=== PATIENT | female | born 1955 | race Caucasian/White ===

== ENCOUNTER → 2022-05-18 15:46 | Outpatient (BNVA) | payer OTHER, SELFPAY | PROVIDERS: Visit Provider Orthopaedic Surgery | DX: M16.12 Unilateral primary osteoarthritis, left hip (principal); M25.552 Pain in left hip | CPT/HCPCS: 73502 ==

== ENCOUNTER 2022-07-04 12:03 | Observation (INO) | payer OTHER, SELFPAY ==
--- NOTE | 2022-06-28 10:46 | P.ANESASSM_ITS ---
Pre-Anesthetic Assessment Height/Weight: Height 1.7 m Operation Date: 07/04/22 07:00 Proposed Procedures p left total hip arthroplasty/ 93605,M16.12(Left) - Abhilash Gallardo MD Familial anesthetic complications: None Social Tobacco and No alcohol Exam alert, oriented x 3, clear to auscultation bilaterally and regular rate & rhythm Airway Mallampati: Class II Dentition: false Pulmonary None reported CV/HEM Hypertension None reported Hepatic None reported GI None reported Metabolic None reported Musc/skel Osteoarthritis/DJD Neuropsych None reported Anesthetic Plan ASA status: 3 Anesthesia: Regional (specify below) Other: spinal Risk of > 500 ml blood loss (7ml/kg in children): Yes, adequate IV access and fluids planned Medications/Allergies Home Medications Medication Instructions Recorded Confirmed Last Taken Type aspirin 81 mg chewable tablet 81 mg PO DAILY 05/18/22 06/28/22 06/27/22 History bupropion HCl 100 mg tablet 100 mg PO BID 05/18/22 06/28/22 06/27/22 History celecoxib 200 mg capsule (Celebrex) 200 mg PO BID 05/18/22 06/28/22 06/26/22 History dexamethasone 4 mg tablet 4 mg PO BID 05/18/22 06/28/22 06/14/22 History hydrochlorothiazide 12.5 mg capsule 12.5 mg PO DAILY 05/18/22 06/28/22 06/26/22 History hydroxychloroquine 200 mg tablet 200 mg PO BID 05/18/22 06/28/22 06/26/22 History melatonin 10 mg tablet 20 mg PO DAILY 05/18/22 06/28/22 06/27/22 History nebivolol 5 mg tablet 5 mg PO DAILY 05/18/22 06/28/22 06/27/22 History tolterodine 2 mg capsule,extended 2 mg PO DAILY 05/18/22 06/28/22 06/27/22 History release 24 hr tumeric 100 mg-flores 150 mg-olive 100 cap PO 2XD 05/18/22 06/28/22 06/26/22 History 50 mg-oreg 150 mg-caprylate capsule Allergies Allergy/AdvReac Type Severity Reaction Status Date / Time No Known Allergies Allergy Verified 06/28/22 10:24 [facility] Anesthesia Social History (Updated 05/18/22 @ 15:38 by Jim Cortes LPN) Smoking and tobacco status: never smoked Alcohol intake: never Data Anesthesia Cardiac Studies: No Data to Display
[2022-06-28 11:01] VITALS: BMI 34.4
[2022-06-28 11:26] LABS: Anion Gap 12.9 (5-19); Blood Urea Nitrogen 18 mg/dL (8-23); Calcium 9.4 mg/dL (8.5-10.5); Carbon Dioxide 26 mmol/L (22-29); Chloride 106 mmol/L (98-107); Glomerular Filtration Rate 84.2 mL/min (90-130); Glucose 87 mg/dL (65-115); Osmolality Calculated 293 mOsm/kg (285-295); Potassium 3.9 mmol/L (3.5-5.1); Sodium 141 mmol/L (136-145)
[2022-07-04] VITALS (35 sets, daily range): BP systolic 62–147; BP diastolic 38–77; PULSE 62–81; RESP 15–18; TEMP 36.2–36.6; O2SAT 90–100
[2022-07-04] MEDS: sodium chloride 0.9% 1,000 ML 30 ML IV (08:46)
[2022-07-04] MEDS: oxyCODONE 20 mg ER (12 HR) Tablet PO (08:49)
[2022-07-04] MEDS: gabapentin 300 mg Capsule PO ×2 (08:51→20:39)
[2022-07-04] MEDS: CELEcoxib 200 mg Capsule 400 MG PO (08:59)
[2022-07-04] MEDS: acetaminophen 500 mg Tablet 1000 MG PO ×2 (09:00→17:05)
--- NOTE | 2022-07-04 09:24 | P.ANESUD_ITS ---
Pre-Anesthetic Update Pre-Anesthetic Assessment: Date of Surgery/Procedure: 07/04/22 Preop Michela gnosis: Osteoarthritis left hip Proposed Procedure: Operation Date: 07/04/22 10:05 Proposed Procedures p left total hip arthroplasty/ 86445,M16.12(Left) - Abhilash Gallardo MD Any changes to Pre-Anesthetic Assessment?: No Last Intake: Intake Last Liquid Date 07/03/22 Last Liquid Time 22:00 Last Solid Date 07/03/22 Last Solid Time 22:00 Vitals: Temperature 97.2 F L 07/04/22 08:31 Temperature Source Temporal Artery S can 07/04/22 08:31 Pulse Rate 79 07/04/22 08:31 Respiratory Rate 18 07/04/22 08:49 Respiratory Effort 07/04/22 08:49 Respiratory Depth Normal 07/04/22 08:49 Respiratory Patter n 07/04/22 08:49 Blood Pressure 147/77 07/04/22 08:31 Blood Pressure Eli n 100 07/04/22 08:31 Pulse Oximetry 96 07/04/22 08:49 Oxygen Delivery Me thod 07/04/22 08:35 Exam: Pre-Anes Outpt Exam: alert, oriented x 3, clear to auscultation bilaterally and regular rate & rhythm Cardiac Studies: No Data to Display
--- NOTE | 2022-07-04 09:31 | P.HP_ITS ---
Same Day Surgery H&P Indication for Procedure/HPI DATE OF PROCEDURE: July 04, 2022 CHIEF COMPLAINT/INDICATIONFOR SURGICAL PROCEDURE: Osteoarthritis left hip here for left total hip arthroplasty PREOP DIAGNOSIS: Osteoarthritis left hip PLANNED PROCEDURE: Operation Date: 07/04/22 10:05 Proposed Procedures p left total hip arthroplasty/ 35401,M16.12(Left) - Abhilash Gallardo MD 66-year-old with osteoarthritis left hip here for total hip arthroplasty. States she has had gradually worsening pain for up to one year. She states that her pain is in the lateral thigh, and in her groin at times. She states that her pain keeps her awake at night and wakes her from sleep. She states that her pain is reproduced with laying on any side. She has pain with prolonged sitting, standing, and walking. She has pain with bending, twisting, and pivoting. She states that she is unable to ambulate stair and walking up an incline.? She s tates she can walk short distances through her house but has a difficult time anytime she attempts to ambulate out in the community.? She has been on Celebrex which does give her minimal relief. Medications/Allergies* Home Medications Medication Instructions Recorded Confirmed Type aspirin 81 mg chewable tablet 81 mg PO DAILY 05/18/22 06/28/22 History bupropion HCl 100 mg tablet 100 mg PO BID 05/18/22 06/28/22 History celecoxib 200 mg capsule (Celebrex) 200 mg PO BID 05/18/22 06/28/22 History dexamethasone 4 mg tablet 4 mg PO BID 05/18/22 06/28/22 History hydrochlorothiazide 12.5 mg capsule 12.5 mg PO DAILY 05/18/22 06/28/22 History hydroxychloroquine 200 mg tablet 200 mg PO BID 05/18/22 06/28/22 History melatonin 10 mg tablet 20 mg PO DAILY 05/18/22 06/28/22 History nebivolol 5 mg tablet 5 mg PO DAILY 05/18/22 06/28/22 History tolterodine 2 mg capsule,extended 2 mg PO DAILY 05/18/22 06/28/22 History release 24 hr tumeric 100 mg-flores 150 mg-olive 100 cap PO 2XD 05/18/22 06/28/22 History 50 mg-oreg 150 mg-caprylate capsule Allergies/Adverse Reactions Allergy/AdvReac Type Severity Reaction Status Date / Time No Known Allergies Allergy Verified 06/28/22 10:24 Current Medications: Generic Name Dose Route Start Last Admin Trade Name Evita PRN Reason Stop Dose Admin Sodium Chloride 1,000 mls @ 30 mls/hr 07/04/22 08:30 07/04/22 08:46 Sodium Chloride 0.9% IV 07/05/22 08:29 30 mls/hr .Q24H ENOC Administration Pertinent History/Comorbid Conditions* Social History Smoking and tobacco status: never smoked Alcohol intake: never Pertinent Exam Findings alert, oriented x 3, clear to auscultation bilaterally, regular rate & rhythm, operative site marked and procedure specific exam findings HIP, left No tenderness RANGE OF MOTION:? EXAMINED HIP ? Flexion:90 ? Extrenal Rotation:40 ? Internal Rotation:20 Recommendations Surgery/Procedure today Coding Level of Care Code Acute Code for Chg Fwd
[2022-07-04] MEDS: ceFAZolin 2,000 MG in sodium chloride 0.9% (plus) 50 ML 100 MG IV ×2 (09:52→17:06)
[2022-07-04] MEDS: tranexamic acid 1,000 mg/10mL SDV 1000 MG IV (10:10)
[2022-07-04] MEDS: sodium chloride 0.9% 100 mL Bag XX (10:32)
--- NOTE | 2022-07-04 11:30 | P.OP_ITS ---
Operative Report Date of procedure: July 04, 2022 Pre-op diagnosis: Preop Diagnosis Osteoarthritis left hip Post-op diagnosis: same Post-op diagnosis: Same Procedure done: Left total hip arthroplasty Implants: 1) Mallory 52 mm Trident 2 solid back acetabular shell 2) Size 3 Chester 127 degree neck angle Accolade 2 stem 3} 28mm -4 standard ceramic femoral head 4} the MDM metal liner Pathology: none sent Surgeon: Abhilash Gallardo Development Scientist: [employer] Development Scientist: The physician biology research assistant assisted with positioning of the patient. He assisted with the surgical exposure including critical portions of the case were implants were implanted. He assisted with closure and dressing and abduction pillow placement Anesthesia: Nerve Block (Spinal) Estimated blood loss (mL): 200 Findings: Patient had eburnation flattening and wear over the femoral head with cystic changes in the acetabular Condition: stable Disposition: PACU Procedure: The patient was taken to the operating room and anesthesia provided by the anesthesia service. The patient was placed in the lateral position on a pegboard. A timeout was performed. The patient was draped in the usual fashion. A 15 cm long incision was made beginning just proximal to the greater trochanter and extending posteriorly to a point just distal to the trochanter on the posterior border of the trochanter. Dissection was carried down with electrocautery through the subcutaneous fat to the fascia eileen which was divided proximally and distally with curved scissors. The anterior two thirds of the gluteus medius and minimus were elevated off the hip with electrocautery. The capsule was divided in a H-like fashion. The hip was dislocated and a neck cut made just above the level of the lesser trochanter. Exposure of the acetabulum was facilitated with the acetabular retractors. Remnants of labrum and peripheral osteophytes were removed with electrocautery and a rongeur. A reamer 2 mm under the size the femoral head was utilized to ream medially to the base of the palm and are. Reaming was then increased in 1 mm intervals until a healthy rim a trabecular bone was encountered. The rim was touched with the reamer the size of the final acetabular shell to be placed. A final Trident 2 acetabular cup of the same size as the final reaming was press- fit into place. The ADM liner was secured. Attention was then focused on the femur. The canal was localized with a canal finder. Broaching was then accomplished until a stable broach size was obtained. A trial reduction with the head and neck provided excellent stability. The wound was irrigated with saline and antibiotic solution. The final Mallory Accolade II stem was press-fit into place. The femoral head was placed and the hip was reduced. The hip was brought through range of motion and found to be free of impingement and stable. The anterior capsule was reapproximated with 1 Ethibond. The gluteus medius and minimus were repaired through bone with 5 Ethibond and reinforced with 1 Ethibond. The fascial eileen was closed with a running 0 Stratafix suture. Deep pelvic tissues were closed with 2-0 Stratafix and the skin with a running 4-0 l Stratafix. The skin was covered with a Prineo dressing and op site dressings.
--- NOTE | 2022-07-04 11:36 | XR_ITS ---
WS: [id number] Left hip, 2 views, 07/04/2022 Clinical Data: Total hip arthroplasty Comparison: Pelvis and left hip, 05/18/2022 Findings: The left hip arthroplasty is in good position. No loosening or periprosthetic fractures are seen. XR/XR hip LT 2-3V wo/w pel* 19100 Impression: Left hip arthroplasty
[2022-07-04] MEDS: albumin 12.5 GM/250 ML VIAL IV (12:14)
[2022-07-04] MEDS: ePHEDrine 50 mg/mL Inj 25 MG IM (12:32)
[2022-07-04] MEDS: sodium chloride 0.9% 1,000 ML 100 ML IV ×2 (14:12→22:29)
--- NOTE | 2022-07-04 15:20 | ANE.PACU2 ---
Inpatient post-anesthesia follow up: Airway intact: Yes Vital signs: Temperature 97.4 F Pulse Rate 76 Respiratory Rate 16 Blood Pressure 93/65 Pulse Oximetry 93 Oxygen Delivery Me thod Room Air Oxygen Flow Rate 2 Fraction of Inspir ed Oxygen Hydration adequate: Yes Nausea and vomiting: No Pain level: 1 Mental status: Baseline
[2022-07-04] MEDS: oxyCODONE 5 mg IR Tab/Cap PO ×2 (17:57→22:29)
[2022-07-04] MEDS: morphine 4 mg/mL SDV 1 mL 2 MG IVP (20:37)
[2022-07-04] MEDS: dexamethasone 4 mg Tablet PO (20:38)
[2022-07-04] MEDS: hydroxychloroquine 200 mg Tablet PO (20:38)
[2022-07-04] MEDS: buPROPion SR (12 HR) 100 mg Tablet PO (20:39)
[2022-07-04] MEDS: CELEcoxib 200 mg Capsule PO (20:39)
[2022-07-05] VITALS (7 sets, daily range): BP systolic 107–121; BP diastolic 66–79; PULSE 71–94; RESP 16; TEMP 36.3–36.5; O2SAT 90–96
[2022-07-05] MEDS: acetaminophen 500 mg Tablet 1000 MG PO ×2 (02:20→09:05)
[2022-07-05] MEDS: ceFAZolin 2,000 MG in sodium chloride 0.9% (plus) 50 ML 100 MG IV ×2 (02:20→09:11)
[2022-07-05] MEDS: oxyCODONE 5 mg IR Tab/Cap PO ×2 (02:20→06:12)
[2022-07-05 04:52] LABS: Hemoglobin 12.1 g/dL (11.5-15.3)
[2022-07-05] MEDS: hydroCHLOROthiazide 25 mg Tablet 12.5 MG PO (09:06)
[2022-07-05] MEDS: CELEcoxib 200 mg Capsule PO (09:07)
[2022-07-05] MEDS: buPROPion SR (12 HR) 100 mg Tablet PO (09:07)
[2022-07-05] MEDS: gabapentin 300 mg Capsule PO (09:07)
[2022-07-05] MEDS: dexamethasone 4 mg Tablet PO (09:07)
[2022-07-05] MEDS: aspirin 81 mg Chew Tablet PO (09:07)
[2022-07-05] MEDS: enoxaparin 40 mg/0.4 mL Syringe SUBCUT (09:08)
[2022-07-05] MEDS: hydroxychloroquine 200 mg Tablet PO (09:09)
--- NOTE | 2022-07-05 09:19 | PM.DCS ---
Discharge Providers Date of Admission: 07/04/22 12:03 Date of Discharge: July 05, 2022 Attending Provider at Admission: Abhilash Lynn MD Attending Provider at Discharge: Abhilash Lynn MD Primary Care Provider: REBECCA Vasquez Reason for Visit Reason for Visit: Unilateral primary osteoarthritis, left hip Hospital Course Hospital Course The patient tolerated surgery well. They remained hemodynamically stable. They was begun on aspirin and sequential compression dressing for DVT prophylaxis. The patient was mobilized with therapy beginning the day of surgery and by the first postoperative day independent with the walker. As the pain was adequately controlled and they were fully mobile they were discharged home. Physical Exam Narrative: On the day of discharge the hip incision was clean. The incision was free of drainage. They had no particular swelling about the thigh or distal. No distal neurovascular deficits were noted. Discharge Data Studies Completed and Pending Completed Studies During Hospitalization Category Date Time Status XR hip LT 2-3V wo/w pel* [id number] Routine Exams 07/04/22 11:36 Completed Radiology Impressions Hip/Pelvis X-Ray 07/04/22 11:36 Impression: Left hip arthroplasty Laboratory Results Hgb 12.1 g/dL (11.5-15.3) 07/05/22 04:43 Sodium 141 mmol/L (136-145) 06/28/22 10:58 Potassium 3.9 mmol/L (3.5-5.1) 06/28/22 10:58 Chloride 106 mmol/L (98-107) 06/28/22 10:58 Carbon Dioxide 26 mmol/L (22-29) 06/28/22 10:58 Anion Gap 12.9 (5-19) 06/28/22 10:58 BUN 18 mg/dL (8-23) 06/28/22 10:58 Creatinine 0.7 mg/dL (0.5-0.9) 06/28/22 10:58 GFR Calculation 84.2 mL/min (90-130) L 06/28/22 10:58 Glucose 87 mg/dL (65-115) 06/28/22 10:58 Calculated Osmolality 293 mOsm/kg (285-295) 06/28/22 10:58 Calcium 9.4 mg/dL (8.5-10.5) 06/28/22 10:58 Vitals Last Vital Signs Temp 97.7 F 07/05/22 07:42 Pulse 80 07/05/22 07:42 Resp 16 07/05/22 07:42 BP 119/79 07/05/22 07:42 Pulse Ox 90 07/05/22 07:42 O2 Del Method 07/05/22 07:42 O2 Flow Rate 2 07/04/22 13:02 Discharge Plan Discharge Patient Disposition: Home Condition: Stable Prescriptions: New acetaminophen 500 mg Tablet 1,000 mg PO Q8H 14 Days Qty: 84 0RF gabapentin 300 mg Capsule 300 mg PO BID 7 Days Qty: 14 0RF oxycodone 5 mg Tablet 5 mg PO Q4H PRN (Reason: Moderate Pain) 7 Days Qty: 30 0RF enoxaparin 40 mg/0.4 mL Syringe 40 mg SUBCUT Q24H 10 Days Qty: 4 0RF Continued hydroxychloroquine 200 mg tablet 200 mg PO BID tolterodine 2 mg capsule,extended release 24hr 2 mg PO DAILY bupropion HCl 100 mg tablet 100 mg PO BID hydrochlorothiazide 12.5 mg capsule 12.5 mg PO DAILY celecoxib [Celebrex] 200 mg capsule 200 mg PO BID nebivolol 5 mg tablet 5 mg PO DAILY aspirin 81 mg tablet,chewable 81 mg PO DAILY gdewfca-lnge-dzyom-oreg-capryl 100 mg-150 mg- 50 mg-150 mg capsule 100 cap PO 2XD melatonin 10 mg tablet 20 mg PO DAILY dexamethasone 4 mg tablet 4 mg PO BID Discharge Orders: Discharge Order (Routine); Ordered 07/05/22 Ordered By: Abhilash Lynn Other Ambulatory Orders: DME: Charles (Order) Location: None Selected Ordered By: Abhilash Lynn Referrals: Abhilash Lynn MD [Physician] - 07/19/22 1:00 pm Discharge Diet: Advance as tolerated Discharge Activity: Limit activity as instructed Patient Instructions: Oxycodone/Acetaminophen (By mouth), Gabapentin (By mouth), Enoxaparin (By injection), Total Hip Replacement (GEN), Opioid Safety Activity Restrictions/Additional Instructions: Okay to shower. No soaking incision in tub Apply FirstIce up to 20 min/hr for pain and swelling Take Neurontin twice a day for 7 days. Take Tylenol 500mg (up to 2 tabs) 3 times a day for mild pain Take oxycodone for breakthrough pain. Exercises per physical therapy. May weight-bear as tolerated on total hip arthroplasty IF HAVE ANY PROBLEMS OR QUESTIONS CALL HOSPITAL TYPESETTING SUPERVISOR AT AND ASK TO HAVE DR. LYNN PAGEBrittani. Discharge Attestations Time Spent in Discharge Care*: other Quality Metrics Clinical Quality Measures [ No reported AMI, CVA or VTE this stay] Coding Level of Care Code Acute Code for Ferg Severo
[2022-07-05] MEDS: sennosides-docusate Tablet 2 TAB PO (09:25)
--- NOTE | 2022-07-05 10:41 | PC.CHAP ---
Pastoral Care Encounter/Spiritual Assessment Type of Contact [] Declined amphibian crewmember visit [] Patient/Family/Request visit [] Outpatient visit [] Follow-up visit [] Physician referral [] Code/Alert [x] Routine visit [] Staff referral [] Actively dying [] Patient sleeping [] Family support [] [] Out of room [] Palliative care [] [] Receiving care in room [] Pre-surgical visit [] Trauma [] Long length of stay [] ICU visit [] Other: Relational/Emotional Strength [x] Patient feels connected with others/family/visitors/staff [] Distress [] Loneliness/isolation [] Abandonment Spirituality of Patient [x] Person of Lakshmi [] Attends Orthodoxy of their Lakshmi [x] Believes in Prayer [] Reads Bible or Alevism materials [] There are Spiritual issues to be addressed Convenience Store Manager Interventions [x] Prayer [x] Active listening [] Non-anxious presence [x] Spiritual/emotional support [] Crisis/trauma care [] Spiritual counseling [] Bereavement support [] Provided bereavement packet [] Provided Bible/devotional materials [] Provided toy/stuffed animal, coloring book to patient or family member [] Provided Communion [] Anointing/Meherrin [] Salvation [x] Completed spiritual assessment [] Other: Impact on Illness or Injury [] Angry [] Fearful [] Anxious [] Often cries [] Exhaustion [] Unable to work [] Unable to attend restorationist [] Unable to walk/stand [] Unable to read [] Unable to drive [] Unable to eat/drink [] Unable to sleep [] Unable to be with family [] Patient intubated [] Other: Summary Time spent with patient 5 min
--- NOTE | 2022-07-05 11:18 | PC.NURSE ---
Discussed discharge, new medications, continued medications, follow up appointments and answered all questions for patient. Patient verbalized understanding and knows how to get a hold of Dr. Gallardo if any issues at home. 1055/DLW
== END 2022-07-05 11:28 | disposition home or self-care (01) ==
LOC: MEDSURG 12:04
PROVIDERS: Anesthesiology; Admitting Provider Orthopaedic Surgery; PCP Nurse Practitioner; Visit Provider Orthopaedic Surgery
PROC: (CPT 27130; principal; 2022-07-04 09:45)
DX: M16.12 Unilateral primary osteoarthritis, left hip (principal); I10 Essential (primary) hypertension; Z79.82 Long term (current) use of aspirin
CPT/HCPCS: 27130; 36415; 73502; 80048; 85018; 96372; 97110; 97116; 97161; 97165; 97535; C1713; C1776; G0378; J0690; J1580; J1650; J2250; J2270; J2370; J2704; J7030; J8540; P9045

== ENCOUNTER → 2022-08-25 11:13 | Outpatient (BNVA) | payer OTHER, SELFPAY | PROVIDERS: PCP Nurse Practitioner; Visit Provider Nurse Practitioner Family | DX: Z96.642 Presence of left artificial hip joint (principal) | CPT/HCPCS: 73502 ==

== ENCOUNTER → 2022-11-24 10:48 | Outpatient (BNVA) | payer OTHER, SELFPAY | PROVIDERS: PCP Nurse Practitioner; Visit Provider Nurse Practitioner Family | DX: Z96.642 Presence of left artificial hip joint (principal) | CPT/HCPCS: 73502 ==

== ENCOUNTER → 2023-08-04 10:00 | Outpatient (BNVA) | payer MEDICARE, SELFPAY | PROVIDERS: PCP Nurse Practitioner; Visit Provider Physician Assistant | DX: Z96.642 Presence of left artificial hip joint (principal) | CPT/HCPCS: 73502; 99213 ==

== ENCOUNTER 2024-11-25 11:53 | Outpatient (CLI) | payer MEDICARE, SELFPAY ==
--- NOTE | 2024-11-25 12:00 | USCV_ITS ---
Magdaleno Mily Age: 68 Gender: F : 1955 Exam Date: 11/25/2024 12:26 Ordering Phys: Ericka ScottP ELECTRICAL PROJECT ENGINEER Technologist: JOSHUA Exam Location: [facility] [place] Indication: CHF BP: 119 / 78 HR: 67 Rhythm: Sinus Technical Quality: Adequate MEASUREMENTS (Male / Female) Normal Values 2D ECHO LV Diastolic Diameter PLAX 4.0 cm 4.2 - 5.9 / 3.9 - 5.3 cm IVS Diastolic Thickness 1.1 cm 0.6 - 1.0 / 0.6 - 0.9 cm IVS Systolic Thickness 2.0 cm LVPW Diastolic Thickness 1.5 cm 0.6 - 1.0 / 0.6 - 0.9 cm LVPW Systolic Thickness 2.0 cm LVOT Diameter 2.1 cm LV Ejection Fraction 2D Teich 56.6 % LV Ejection Fraction MOD 4C 65.0 % LV Ejection Fraction MOD 2C 75.7 % LV Ejection Fraction 2C AL 75.1 % LA Diameter 3.2 cm RA Systolic Volume 4C AL 23.4 ml RA Systolic Volume 4C MOD 22.2 ml LA Sys Volume AL 49.6 cm cubed LA Sys Volume Index AL 23.7 cm cubed/m squared Aorta at Sinotubular Diameter 2.4 cm IVC Diameter 1.6 cm M-MODE LA Ao Ratio MM 1.5 AV Cusp Separation MM 1.2 cm DOPPLER AV Peak Velocity 214.7 cm/s LVOT Peak Velocity 106.0 cm/s AV Area Cont Eq vti 1.6 cm squared AV Area Cont Eq pk 1.7 cm squared MV Peak Velocity 99.0 cm/s MV Area PHT 3.9 cm squared Mitral E to A Ratio 0.9 TR Peak Velocity 173.0 cm/s TR Peak Gradient 12.0 mmHg TV Peak E Velocity 75.0 cm/s PV Peak Velocity 136.0 cm/s FINDINGS Left Ventricle Left ventricle is normal in size. LV systolic function is normal with EF of 60-65%. No regional wall motion abnormalities are seen. Grade 1 diastolic dysfunction Right Ventricle Normal in size and function Right Atrium Normal in size Left Atrium Normal in size Mitral Valve Structurally normal mitral valve. Trace mitral regurgitation Aortic Valve Aortic valve is thickened. Mild aortic stenosis with aortic valve area of 1.67 cm squared and mean gradient of 9 mmHg. Tricuspid Valve Insufficient TR jet to calculate RVSP. Pulmonic Valve Not well visualized Pericardium Normal Aorta Normal in size IVC Appears to be normal CONCLUSIONS LV systolic function is normal with EF of 60-65% Grade 1 diastolic dysfunction Trace mitral regurgitation Mild aortic stenosis Yves Hernandez MD (Electronically Signed) Final Date: 26 November 2024 11:25 S
== END 2024-11-25 11:54 | disposition home or self-care (01) ==
LOC: RAD 11:55
PROVIDERS: PCP Nurse Practitioner; Visit Provider Nurse Practitioner
DX: I50.9 Heart failure, unspecified (principal); M19.90 Unspecified osteoarthritis, unspecified site; J44.9 Chronic obstructive pulmonary disease, unspecified; R93.1 Abnormal findings on diagnostic imaging of heart and coronary circulation; I35.8 Other nonrheumatic aortic valve disorders; I35.0 Nonrheumatic aortic (valve) stenosis
CPT/HCPCS: 93306

== ENCOUNTER → 2025-01-14 10:59 | Outpatient (BNVA) | payer MEDICARE, SELFPAY | PROVIDERS: PCP Nurse Practitioner; Visit Provider Physician Assistant | DX: Z96.642 Presence of left artificial hip joint (principal); M25.472 Effusion, left ankle; M16.11 Unilateral primary osteoarthritis, right hip | CPT/HCPCS: 73502; 73610; 99214 ==

== ENCOUNTER → 2025-02-03 13:23 | Outpatient (BNVA) | payer MEDICARE, SELFPAY | PROVIDERS: PCP Nurse Practitioner; Referring Provider Nurse Practitioner; Visit Provider Internal Medicine | DX: R07.9 Chest pain, unspecified (principal); I35.0 Nonrheumatic aortic (valve) stenosis; I10 Essential (primary) hypertension; R06.09 Other forms of dyspnea; F17.200 Nicotine dependence, unspecified, uncomplicated | CPT/HCPCS: 93005; 99204 ==

== ENCOUNTER → 2025-03-25 12:18 | Outpatient (BNVA) | payer MEDICARE, SELFPAY | PROVIDERS: PCP Nurse Practitioner; Visit Provider Student in an Organized Health Care Education/Training Program | DX: Z01.818 Encounter for other preprocedural examination (principal) | CPT/HCPCS: 36415; 80053; 81001; 85025 ==

== ENCOUNTER 2025-04-08 08:04 | Outpatient (CLI) | payer MEDICARE, SELFPAY ==
--- NOTE | 2025-04-08 | ECG_ITS ---
[employer] Test Date: 2025-04-08 Pat Name: Mily Dolan Department: Room: Gender: Female Cook Manager: : 1955 Requested By: Yves Hernandez Order Number: [id number] Mayo MD: Conrad Mojica M.D. Interpretive Statements Lung unchanged pre/post procedure; Intraprocedure shortess of breath; Symptoms resoled by discharge PROCEDURE: At the baseline, the EKG revealed normal sinus rhythm with a normal ST Ts. Possible old septal NC. The baseline heart was 60 bpm with a blood pressue of 111/77 mm of Hg Lexiscan was infused over a period of 20 seconds. A total of 0.4 milligrams of Lexiscan was infused. The stress phase was continued for a total of 5 minutes. Heart rate at the end of the stress phase was 80 bpm with a blood pressure 108/67 mm of Hg. The EKG at the peak infusion revealed no significant changes. Sestamibi was injected 20 seconds after the Lexiscan infusion. Heart rate at the end of the recovery phase was 80 bpm with a blood pressure of 108/67 mm of Hg. CONCLUSION: 1. No significant EKG changes with the LexiScan infusion 2. No LexiScan induced chest pain or cardiac arrhythmia 3. Normal blood pressure and heart rate response 4. Sestamibi/sestamibi perfusion scan pending; see separate report. Electronically Signed On 04-13-2025 21:09:13 PIE ICER MACHINE by Conrad Mojica M.D. [email or web address]
--- NOTE | 2025-04-08 08:13 | NMCV_ITS ---
NM aixa perf SPECT r/s* [id number] Mily Dolan Age: 69 Gender: F : 1955 Exam Date: 04/08/2025 09:05 Ordering Phys: Yves Hernandez M.D ([email or web address]) Technologist: LILLIAN Granados Exam Location: [facility] [place] Indications: cp STRESS TEST Please see separate stress test report in [facility] for full findings IMAGE PROTOCOL Rest/Stress 1 Lexiscan Day Radiopharmaceutical Dose (mCi) Administration Site Administered by Rest: Tc-99m 10.4 IV LILLIAN Granados Sestamibi Stress:Tc-99m 32.1 IV LILLIAN Reeves Sestamibi Rest: 08-Apr-2025 60 Discovery 630 Stress: 08-Apr-2025 30 Discovery 630 0.4mg Lexiscan. Supine position only as patient was unable to lay prone. SPECT RESULTS Technical Quality: Good Raw Data Analysis: Normal Image Corrections: No attenuation or motion correction applied Summed Stress Score: 0 Summed Rest Score: 1 Summed Difference Score: 0 PERFUSION FINDINGS A small area of slightly decreased tracer uptake was noted in the apical inferior wall region. No significant reversibility was noted in this area FUNCTIONAL RESULTS (calculated via Gated SPECT) Stress Image LV EF (%): 74 Stress EDV (mL):99 TID: 1.2 Stress ESV (mL):26 FUNCTIONAL FINDINGS: Segmental wall motion analysis revealing no gross wall motion abnormalities IMPRESSIONS 1. Myocardial perfusion imaging revealing a small area of persistent decreased tracer uptake in the apical inferior region suggestive of myocardial scarring versus attenuation artifact 2. Normal LV ejection fraction of 74%. 3. LV wall motion analysis revealing no gross wall motion abnormalities. 4. Normal LV volume 5. Elevated transient ischemic dilatation ratio 1.2, may suggest endocardial ischemia. However the positive predictive value of this finding is limited. Clinical correlation is recommended Dr Conrad Mojica MD FACC (Electronically Signed) Final Date: 08 April 2025 13:00 S
[2025-04-08 08:25] VITALS: BMI 29.7
[2025-04-08 09:52] VITALS: BP 108/67; PULSE 86
--- NOTE | 2025-04-08 13:00 | USCV_ITS ---
Mily Dolan Age: 69 Gender: F : 1955 Exam Date: 04/08/2025 08:46 Ordering Phys: Landon Ramos DO Technologist: JOSHUA [place]am Location[place] [facility] [place] Indication: h/o dvt. Preoperative clearance HISTORY: h/o LLE dvt. Preoperative clearance PROCEDURES: Venous duplex imaging was performed in bilateral lower extremities. The following venous structures were evaluated: common femoral vein, profunda vein, proximal portion of the greater saphenous vein, superficial femoral vein, and the popliteal vein. In addition, the posterior tibial and peroneal trunk were evaluated. Serial compression, augmentation maneuvers, and spectral Doppler flow evaluation were performed. FINDINGS: No evidence of DVT seen in any vessel visualized at this time. CONCLUSIONS No evidence of right lower extremity DVT. No evidence of left lower extremity DVT. LEFT Popliteal cyst measuring 5.6 x 3.0 x 2.5cm with internal debris Russell Vasquez MD (Electronically Signed) Final Date: 08 April 2025 10:14 S
--- NOTE | 2025-04-08 16:45 | CT_ITS ---
WS: [id number] CT RIGHT hip for LIZ procedure HISTORY: RIGHT TOTAL HIP ARTHROPLASTY Date: 04/08/2025 9:50 AM COMPARISON: None available. TECHNIQUE: Protocol for LIZ total hip replacement has been obtained. This includes axial imaging from the hip joint through the knee joint. DLP: FINDINGS: Advanced degenerative arthritis RIGHT hip with subchondral cystic change and sclerosis. Prior postoperative changes LEFT CLAUDIA. Sigmoid diverticulosis. Small bilateral suprapatellar knee effusions. Bilateral lobulated popliteal cysts measuring 2.6 x 2.2 cm in the LEFT and 3.1 x 1.2 [address] on the RIGHT. CT/CT hip RT LIZ [id number] IMPRESSION: CT imaging provided for LIZ robotic total hip replacement.
== END 2025-04-08 08:05 | disposition home or self-care (01) ==
PROVIDERS: PCP Nurse Practitioner; Visit Provider Student in an Organized Health Care Education/Training Program
DX: Z01.818 Encounter for other preprocedural examination (principal); Z86.718 Personal history of other venous thrombosis and embolism; M16.11 Unilateral primary osteoarthritis, right hip; Z96.651 Presence of right artificial knee joint; K57.31 Diverticulosis of large intestine without perforation or abscess with bleeding; M25.461 Effusion, right knee; M25.462 Effusion, left knee; M71.22 Synovial cyst of popliteal space [Baker], left knee; M71.21 Synovial cyst of popliteal space [Baker], right knee
CPT/HCPCS: 36415; 73700; 78452; 93017; 93970; 96374; A9500; J2785

== ENCOUNTER 2025-04-21 15:47 | Observation (INO) | payer MEDICARE, SELFPAY ==
[2025-04-21] VITALS (16 sets, daily range): BP systolic 92–124; BP diastolic 47–79; PULSE 63–79; RESP 12–18; TEMP 36.1–36.5; O2SAT 90–100; BMI 30.8
[2025-04-21] MEDS: acetaminophen 1,000 MG/100 ML PIGGYBACK 400 MG IV ×2 (10:52→20:09)
[2025-04-21 11:33] LABS: Hematocrit 43.9 % (36-47); Hemoglobin 14.40 g/dL (11.27-16.99); Mean Corpuscular HGB Conc 32.8 g/dL (30-55); Mean Corpuscular Hemoglobin 30.3 pg (27-33); Mean Corpuscular Volume 92.2 fl (85-98); Nucleated Red Blood Cells % 0 %; Platelet Count 235 10^3/cmm (157-399); Red Blood Count 4.76 10^6/uL (3.85-5.65); White Blood Count 7.07 10^3/uL (3.29-11.43)
--- NOTE | 2025-04-21 12:17 | ANES.PREANE2 ---
Pre-Anesthetic Assessment Height/Weight: Height 5 ft 7 in Weight 197 lb Temp Pulse Resp BP Pulse Ox O2 Del Method 97.4 F L 77 18 124/79 96 Room Air 04/21/25 10:44 04/21/25 10:44 04/21/25 10:44 04/21/25 11:04 04/21/25 10:44 04/21/25 10:44 Preop Diagnosis: Osteoarthritis of the hip Operation Date: 04/21/25 12:15 Proposed Procedures p Americo Robot Total Hip Arthroplasty(Right) - Landon Ramos, DO Was Beta Rosana taken within 24 hours: Yes Was Clonidine taken within 24 hours: N/A Last intake: Intake Last Liquid Date 04/20/25 Last Liquid Time 19:00 Last Solid Date 04/20/25 Last Solid Time 19:00 Social No alcohol and No tobacco Exam alert, oriented x 3, clear to auscultation bilaterally and regular rate & rhythm Airway Submandibular: within normal limits Cervical ROM: within normal limits Mallampati: Class II Comments: Comments: Edentulous Anesthetic Plan ASA status: 3 Anesthesia: General Other: No prior issues with anesthesia NPO since yesterday evening History of hypertension on hydrochlorothiazide and Nebivolol. Preop BP 124/79 Negative stress test 04/08/2025 Labs 04/21/2025 reviewed and acceptable for procedure EKG sinus rhythm Patient refusing spinal Plan for general anesthesia Medications/Allergies Home Medications ?Medication ?Instructions ?Recorded ?Confirmed ?Last Taken ?Type aspirin 81 mg chewable tablet 81 mg PO DAILY 05/18/22 04/17/25 04/14/25 07:00 History hydrochlorothiazide 12.5 mg capsule 12.5 mg PO DAILY 05/18/22 04/17/25 04/17/25 History hydroxychloroquine 200 mg tablet 200 mg PO BID 05/18/22 04/17/25 04/17/25 History melatonin 10 mg tablet 20 mg PO DAILY 05/18/22 04/17/25 04/20/25 22:00 History nebivolol 5 mg tablet 5 mg PO DAILY 05/18/22 04/17/25 04/20/25 22:00 History tolterodine 2 mg capsule,extended 2 mg PO BID 05/18/22 04/17/25 04/17/25 History release 24 hr gabapentin 300 mg capsule 300 mg PO BID #14 caps 07/05/22 04/17/25 04/21/25 06:30 Rx hydrocodone 5 mg-acetaminophen 325 1 tab PO BID PRN Pain 01/14/25 04/17/25 04/21/25 06:30 History mg tablet linaclotide 72 mcg capsule 72 mcg PO DAILY 04/08/25 04/17/25 04/17/25 History (Linzess) naproxen 500 mg tablet 500 mg PO BID 04/08/25 04/17/25 Unknown History potassium chloride 10 mEq 10 meq PO DAILY 04/08/25 04/17/25 04/17/25 History capsule,extended release Allergies Allergy/AdvReac Type Severity Reaction Status Date / Time lisinopril Allergy Severe ADR-Cough Verified 04/21/25 10:35 varenicline (From Chantix) Allergy Unknown ADR-Hyperte Verified 04/21/25 10:35 nsion Current Medications Generic Name Dose Route Start Last Admin Trade Name Freq PRN Reason Stop Dose Admin Sodium Chloride 1,000 mls @ 30 mls/hr 04/21/25 10:30 04/21/25 10:53 Sodium Chloride 0.9% IV 04/22/25 10:29 30 mls/hr .Q24H ENOC Administration PFS Anesthesia Medical History Hypertension Social History Smoking and tobacco/nicotine status: current every day tobacco/nicotine user Alcohol intake: never Substance/Drug Use: never Data Anesthesia 04/21/25 11:00 04/21/25 11:50 Short CBC 04/21/25 Range/Units 11:00 WBC 7.07 (3.29-11.43) 10^3/uL Hgb 14.40 (11.27-16.99) g/dL Hct 43.9 (36-47) % MCV 92.2 (85-98) fl Plt Count 235 (157-399) 10^3/cmm Neut % (Auto) 68.1 % Neut # (Auto) 4.81 (1.8-7.7) 10^3/uL BMP 04/21/25 11:00 Sodium Cancelled Potassium Cancelled Chloride Cancelled Carbon Dioxide Cancelled BUN Cancelled Creatinine Cancelled Glucose Cancelled Calcium Cancelled Blood Bank 04/21/25 11:00 Blood Type Cancelled Rho(D) Type Cancelled Antibody Screen Cancelled Cardiac Studies: Echocardiogram Ultrasound 11/25/24 Sestamibi Stress Test (Cardiology) 04/08/25
[2025-04-21 12:27] LABS: Anion Gap 15.1 (5-19); Blood Urea Nitrogen 15 mg/dL (8-23); Calcium 9.6 mg/dL (8.5-10.5); Carbon Dioxide 24 mmol/L (22-29); Chloride 101 mmol/L (98-107); Glucose 92 mg/dL (65-115); Osmolality Calculated 282 mOsm/kg (285-295); Potassium 4.1 mmol/L (3.5-5.1); Sodium 136 mmol/L (136-145)
--- NOTE | 2025-04-21 12:47 | W.PM.OPSUD ---
Surgery/Procedure H&P Update DATE OF PROCEDURE: April 21, 2025 DATE H&P PERFORMED: 03/25/25 H&P UPDATE INFORMATION: I have reviewed H&P completed within last 30 days, I have examined patient prior to procedure, No changes to prior documentation and Risks and benefits of the procedure reviewed CHANGES TO PREVIOUS DOCUMENTATION: Please refer to preoperative anesthesia evaluation for heart and lung findings. Patient is cleared the preoperative clearance process no change in health since last visit. Preoperative ultrasound scans were negative. No change in any symptoms no urinary symptoms. This point time patient is ready to proceed with surgical invention for right total hip arthroplasty?Americo robotic assisted plan through posterior approach. Patient understands agrees to current plan. All questions answered. PREOP DIAGNOSIS: Osteoarthritis of the hip right PRIMARY INDICATION FOR PROCEDURE: Right hip DJD PLANNED PROCEDURE: Operation Date: 04/21/25 12:15 Proposed Procedures p Americo Robot Total Hip Arthroplasty(Right) - Landon aRmos DO
[2025-04-21] MEDS: ceFAZolin 2,000 MG in sodium chloride 0.9% (plus) 50 ML 100 MG IV ×2 (13:22→21:42)
[2025-04-21] MEDS: tranexamic acid 1,000 MG/100 ML PREMIX 600 MG IV ×2 (13:30→21:42)
--- NOTE | 2025-04-21 15:48 | W.PM.BPON ---
Date of Procedure: [April 21, 2025] Surgeon: [Dr. Ramos DO] Visual Developer(s): [John Ramos PA-C] Procedure(s) performed: [Right total hip arthroplasty with Americo robotic assist] Findings of the procedure(s): [Right hip degenerative joint disease. Procedure went well and is planned] Estimated blood loss: [200 mL] Specimen(s) removed: [Femoral head] Post-operative diagnosis: [Right hip degenerative joint disease]
--- NOTE | 2025-04-21 15:50 | PM.OP ---
Operative Report Date of procedure: April 21, 2025 Surgeon: Landon Ramos DO Industrial Maintenance Instructor: John Ramos PA-C: PA was necessary for assistance in this case with leg positioning, assistance with hip reductions, retraction and protection of neurovascular structures as well as assistance in total hip prosthesis implantation and assistance with wound closure and dressing application. Procedure: Preop Diagnosis?Right hip degenerative joint disease Post-op diagnosis: Right hip degenerative joint disease Procedure done: Right total hip arthroplasty?robotic assisted Americo?posterior?approach Implants: Aston total hip arthroplasty implants 52 mm cluster hole acetabular shell Alpha code E MDM cementless metal liner Mallory insignia hip stem high offset size 3 Alpha code E MDM -4mm Surgeon: Landon Ramos DO Estimated blood loss: 200 mL IV fluids: 1400 mL Urine output: 200 mL Complications: None Condition: stable Disposition: floor Brief History: Patient's been seen and worked up by myself in the outpatient setting and findings consistent with Right hip degenerative joint disease. Patient has failed conservative treatment this is causing severe pain and decreased mobility . we talked about his treatment options as far as nonoperative and operative intervention. Patient ultimately through shared decision-making would like to proceed with a Right total hip arthroplasty?Americo robotic assisted posterior approach. we detailed out risk benefits complications alternatives to surgical and nonsurgical treatment options. Understanding risk for surgery patient elects to proceed with Right total hip arthroplasty robotic assisted Americo utilizing a?posterior?approach. All questions answered. Patient elects proceed with surgery today. Consent reviewed and signed with patient the preoperative area Procedure: Patient was seen evaluate in preoperative holding area.? Consent was reviewed and signed with patient.? Correct extremity was then marked.? Patient seen evaluate by anesthesia department once cleared for surgery pt was taken back to the operative suite.? Patient underwent spinal anesthesia per the anesthesia department.? This point time pt was then placed on the operative suite and table.? Pt was then placed in lateral decubitus patient worked with the Right hip up.? Patient was secured in the lateral decubitus position with pegboard. All bony prominences well-padded he was properly secured to the bed.? At this point time the Right lower extremity was then prepped and draped in standard orthopedic fashion with care not to drape out the iliac wing for pelvic array placement.? Final timeout performed.? Patient received appropriate preoperative antibiotics. Started off with establishment of my pelvic array pins.? A small longitudinal incision was made directly over the iliac wing.? Sharp scalpel excision through skin and subcutaneous tissue directly onto bone.? Next I then loaded my pelvic pin.? This was then drilled through the iliac wing corridor with excellent fixation.? Next I then loaded the guide which was placed directly onto bone and then subsequently placed 2 more pins to secure fixation.? Next the pelvic array was then sent had excellent visualization with the Americo robot and was secured. EKG pad was placed on the distal lateral aspect of the femur and sterile aseptic technique and use as my distal reference point. Next I proceeded with standard?posterior?approach.? Sharp scalpel through skin and subcutaneous tissue this was centered over the greater trochanter.? I then utilized a Agosto elevator over the gluteus lele fascia.? Next the fascia was then split longitudinally with bipolar electrocautery.? Next a Charnley retractor was then placed.? All bone was then placed into the abductors.? A standard full-thickness release of the piriformis and the short external rotators along with the capsule to grade 1 full thick sleeve for later repair was then placed straight down to the lesser trochanter.? Lesser trochanter was then subsequently identified.? Prior to dislocating the hip we then placed our greater trochanter femur checkpoint.? We marked our appropriate checkpoint for referencing on pelvic array.? At this point in time we then established both of our checkpoints as well as referencing for leg lengths I utilized the EKG pad as my distal reference point. The legs were marked and traced to have appropriate position on the drapes to allow for accurate reading.? Preoperative leg lengths set. Once this was then established I then proceeded with dislocation of the femoral head.? At this point Hohmann's were then placed superiorly and inferiorly along the femoral neck.? The sciatic nerve was protected throughout this case.? At this point time I then utilized the Americo robot and referencing point to reference different aspects along the femoral head and neck for my appropriate neck length.? These were referenced on the inferior mid substance as well as up into the superior shoulder of the femoral neck.? This marked my oscillating saw was used to make my femoral neck cut.? Femoral head was then removed. Next the leg was placed in appropriate position and my anterior and?posterior?acetabular retractors then placed.? Next I excised the labrum and then remove the pulvinar.? I did do a small release of the inferior capsule which was severely taut to allow for easier placement of my reamers as well as reduction.? Acetabulum was thoroughly irrigated. At this point in time keeping my retractors in place I subsequently loaded up the foodjunky robot for my acetabular reaming.?? Next I then set my 52mm reamer under the Americo robot and subsequently held this with appropriate preplanned preop planned version of 40 degrees of abduction angle as well as 20 degrees of anteversion.? I then subsequently reamed this to the appropriate depth with 52 mm reamer. This had excellent bleeding bone circumferentially. We opened up the acetabular shell clusterhole of the 52 mm Aston this was then loaded onto my impacting system and then I subsequently impacted this to appropriate depth.? This was then removed from the robot and I used the Americo probe at the center to confirm on the CT scan?that this was down on bone which it was.? This had excellent fixation and bite and did not require any added screw fixation as a result no acetabular screw was needed. The cup was solid and had excellent press-fit fixation. next, opened the alpha code E MDM cementless liner then subsequently placed in appropriate position and impacted into place.? At this point time I then utilized a small rongeur to clear off the shoulder of the femoral neck to clear out the soft tissue envelope for my box osteotome.? Next box osteotome was used a canal finder was placed as well as a lateral lysing rattail rasp.? Once I was appropriately lateralized I then sequentially broached up to a size 3 high offset femoral stem.? This was impacted to appropriate depth and flushed with my femoral neck cut.? At this point I then performed multiple trials and was satisfied with a -4 mm neck length.? At this point in time the hip was taken through range of motion before evaluating with the robot on leg lengths.? Patient appeared to satisfactory leg lengths clinically. the hip was taken through range of motion and had excellent stability with hip flexion and internal rotation with no evidence of instability had an appropriate shuck.? This point time utilized the Americo probe from our femur checkpoint down to her distal checkpoint. Satisfied with this trial implants, at this point I dislocated the hip and then called for my final implants with excellent stability in all planes.? Opened up a size 3 femoral hip stem Mallory insignia high offset My trials were then removed and then subsequently impacted my Mallory insignia femoral stem high offset to the same level.? This point in time I trialed up to a -4mm neck length which helped match with Americo robotic assistance had appropriate leg lengths comparative to the contralateral hip and this was confirmed clinically as well as had excellent stability I felt as though this was best combination with leg lengths being equal as well as with stability and elected for the final -4 mm MDM femoral head. Final MDM femoral head component was then opened and the trunnion was dried and this was impacted with excellent fixation and the hip was subsequently reduced.? We measured our final leg lengths which were appropriate patient had excellent stability in all ranges of motion.? This point time a robotic pins and checkpoints were removed.? I remove the femur checkpoint as well as my pelvic array and iliac wing pins.? Appropriate counts were then made.? This point time thoroughly irrigated the wound bed with pulse lavage.? Vancomycin powder was then sprinkled into the wound bed.? I then performed a standard capsular and external rotator repair utilizing #5 Ethibond and this was tied and repaired through bone tunnels hip, sciatic nerve was protected throughout this portion of the case. Was then kept in abduction external rotation and subsequently closed the fascial layer with Ethibond suture as well as running strata fix suture.? I then closed the deep subcutaneous layer as well as superficial subcutaneous layer with running strata fix suture as well as 3-0strata fix for skin.? Prineo glue dressing was then placed over the skin.? I then irrigated the pelvic array pin site.? There is were then closed with interrupted 0, 2-0 Vicryl suture and Monocryl as well as Prineo glue for the skin.? Incisions were then covered with jenn and Silverlon dressing.? Patient was awakened from anesthesia and taken to PACU in stable condition Disposition: Patient taken to PACU in stable condition.? Patient will receive appropriate discharge instructions as well as DVT prophylaxis and pain medication.? Patient will be admitted to the floor for observation should be evaluated by the internal medicine team for medical management.? Patient received appropriate DVT prophylaxis as well as pain medication PT/OT weightbearing as tolerated Right lower extremity with?posterior?hip precautions, Postoperative Abx and TXA.? We will follow-up with patient in the office in 2 weeks.? Patient understands agrees with current plan.? All questions answered.
--- NOTE | 2025-04-21 15:50 | PM.PACU ---
PACU note Narrative: Patient is a 69-year-old female who just underwent a right hip total arthroplasty. Pt transferred to PACU in stable condition. Dressing is dry. pt is awake and alert. pt can wiggle toes and plantarflex and dorsiflex foot. Distal pulses are palpable toes are warm and well-perfused. Cap refill is normal and under 2 seconds. Sensation to foot is intact. Pain is controlled. Exam: awake Disposition: admitted
--- NOTE | 2025-04-21 15:55 | XRR_ITS ---
PROCEDURE INFORMATION: Exam: XR Right Hip Exam date and time: 04/21/2025 4:59 PM Age: 69 years old Clinical indication: Screening exam; Eddie, prior surgery; Surgery date: Post-operative (0-2 days); Additional info: Post op eddie, do in pacu TECHNIQUE: Imaging protocol: Radiologic exam of the right hip. Views: 2 or 3 views hip with pelvis when performed. COMPARISON: CT hip RT [facility] [id number] 04/08/2025 9:53 AM FINDINGS: Bones/joints: Status post right total hip arthroplasty with postop changes noted. The hardware is intact. There are no fractures or dislocations. Left hip hardware is on remarkable. Soft tissues: Unremarkable. XR/XR hip RT 2-3V wo/w pel* [id number] IMPRESSION: Postop changes status post right total hip arthroplasty with intact hardware.
--- NOTE | 2025-04-21 16:04 | PC.NURSE ---
This nurse took report from CHINO Funes in PACU at 1604.
[2025-04-21] MEDS: sennosides-docusate Tablet 2 TAB PO (16:37)
[2025-04-21] MEDS: mupirocin oint 22 gm 1 APPLIC NASAL (16:38)
[2025-04-21] MEDS: calcium carb-vit d 600mg/400unit 1 Tablet 1 EACH PO (16:38)
[2025-04-21] MEDS: chlorhexidine gluconate 0.12% Btl 473 mL 30 ML MUCOUS MEM ×2 (16:40→21:44)
--- NOTE | 2025-04-21 17:11 | PM.CONSULT ---
Providers/Reason For Consult Consulting Physician/Specialty*: Hospitalist Reason for Consult*: Medical Management Attending Physician: Landon Ramos DO Primary Care Provider: REBECCA Vasquez History of Present Illness History of Present Illness Mily Dolan is a 69 year old female with a history of hypertension and inflammatory arthritis, presents post-operatively after elective right total hip arthroplasty reported as uneventful with estimated blood loss of 200 mL. Home medications include aspirin 81 mg, hydrochlorothiazide, nebivolol, hydroxychloroquine, gabapentin, hydrocodone, and naproxen; not on steroids. Reports usual home blood pressures in the 120s/80s, with one prior episode of hypotension into the 60s. In hospital, blood pressure noted to be soft at 98/60 after surgery. Denies chronic lung disease history, though mentions COPD/asthma has been suggested in the past without a definite diagnosis. Denies sleep apnea and does not use oxygen. Lives with her daughter. Uses canes and walkers at home. Denies diarrhea, melena, hematochezia, hematuria, dysuria, or rashes. Notes intermittent lower extremity swelling; denies a history of congestive heart failure. Pain control needs discussed; anticipates use of incentive spirometer and physical therapy. Plan discussed for blood count recheck for possible post-operative anemia and venous thromboembolism prophylaxis likely starting tomorrow, with tentative discharge home. Review of Systems Const: Denies: fever(s), chills, body aches or malaise ENMT: Denies: throat pain Card: Denies: chest pain, edema, pre-syncope or dyspnea on exertion Resp: Denies: dyspnea, productive cough, change in phlegm color or hemoptysis GI: Denies: abdominal pain, nausea, vomiting, diarrhea, constipation, hematochezia or melena : Denies: flank pain, urinary frequency or hematuria Musc: Denies: back pain, joint swelling or joint redness Skin/Breast: Denies: rash or new lesions Neuro: Denies: headache(s) or confusion Medications/Allergies Home Medications ?Medication ?Instructions ?Recorded ?Confirmed ?Last Taken ?Type aspirin 81 mg chewable tablet 81 mg PO DAILY 05/18/22 04/17/25 04/14/25 07:00 History hydrochlorothiazide 12.5 mg capsule 12.5 mg PO DAILY 05/18/22 04/17/25 04/17/25 History hydroxychloroquine 200 mg tablet 200 mg PO BID 05/18/22 04/17/25 04/17/25 History melatonin 10 mg tablet 20 mg PO DAILY 05/18/22 04/17/25 04/20/25 22:00 History nebivolol 5 mg tablet 5 mg PO DAILY 05/18/22 04/17/25 04/20/25 22:00 History tolterodine 2 mg capsule,extended 2 mg PO BID 05/18/22 04/17/25 04/17/25 History release 24 hr gabapentin 300 mg capsule 300 mg PO BID #14 caps 07/05/22 04/17/25 04/21/25 06:30 Rx hydrocodone 5 mg-acetaminophen 325 1 tab PO BID PRN Pain 01/14/25 04/17/25 04/21/25 06:30 History mg tablet linaclotide 72 mcg capsule 72 mcg PO DAILY 04/08/25 04/17/25 04/17/25 History (Linzess) naproxen 500 mg tablet 500 mg PO BID 04/08/25 04/17/25 Unknown History potassium chloride 10 mEq 10 meq PO DAILY 04/08/25 04/17/25 04/17/25 History capsule,extended release Allergies Allergy/AdvReac Type Severity Reaction Status Date / Time lisinopril Allergy Severe ADR-Cough Verified 04/21/25 10:35 varenicline (From Chantix) Allergy Unknown ADR-Hyperte Verified 04/21/25 10:35 nsion Current Medications Generic Name Dose Route Start Last Admin Trade Name Freq PRN Reason Stop Dose Admin Calcium Carbonate 1 each 04/21/25 17:00 04/21/25 16:38 Calcium Carb-Vit D 600mg/400unit 1 Tablet PO 1 each BID ENOC Administration Chlorhexidine Gluconate 30 ml 04/21/25 17:00 04/21/25 16:40 Chlorhexidine Gluconate 0.12% Btl 473 Ml MUCOUS MEM 30 ml QID ENOC Administration Lactated Ringer's 1,000 mls @ 100 mls/hr 04/21/25 16:06 04/21/25 16:40 Lactated Ringers IV 100 mls/hr .Q10H ENOC Administration Mupirocin 1 applic 04/21/25 17:00 04/21/25 16:38 Mupirocin Oint 22 Gm NASAL 04/26/25 16:59 1 applic BID ENOC Administration Polysaccharide Iron Complex 150 mg 04/21/25 18:00 04/21/25 16:37 Iron Polysaccharide Complex 150 Mg Capsule PO 150 mg BIDWM ENOC Administration Senna/Docusate Sodium 2 tab 04/21/25 17:00 04/21/25 16:37 Sennosides-Docusate Tablet PO 2 tab BID ENOC Administration PFSH Acute PFSH: Medical History Rheumatoid arthritis Osteoarthritis of right hip Osteoarthritis of left hip Hypertension Surgical History Status post left hip replacement Social History Smoking and tobacco/nicotine status: current every day tobacco/nicotine user Alcohol intake: never Substance/Drug Use: never Vitals/I&O/Wt Last Vital Signs Temp 97.3 F L 04/21/25 16:30 Pulse 77 04/21/25 16:30 Resp 15 04/21/25 16:30 BP 98/60 04/21/25 16:30 Pulse Ox 92 04/21/25 16:30 O2 Del Method Room Air 04/21/25 16:30 O2 Flow Rate 6 04/21/25 15:57 04/21/25 04/21/25 04/21/25 06:59 14:59 22:59 Intake Total 1250 / 1250 1500 / 2750 Output Total 400 / 400 Balance 1250 / 1250 1100 / 2350 Weight last 48 hrs Weight 89.358 kg Physical Exam Const: COMMON NORMALS: patient oriented x3 and alert GENERAL APPEARANCE: cooperative ORIENTATION/CONSCIOUSNESS: Yes awake HENMT: COMMON NORMALS: oropharynx normal Neck/C-Spine: COMMON NORMALS: no JVD Resp: COMMON NORMALS: normal respiratory effort and clear to auscultation bilaterally AUSCULTATION: clear to auscultation bilaterally Cardio: COMMON NORMALS: no JVD, regular rhythm, S1 normal heart sound present, S2 normal heart sound present and No murmurs present (Cardio) RHYTHM: regular rhythm HEART SOUNDS: S1 normal heart sound present and S2 normal heart sound present GI: COMMON NORMALS: Normal to inspection, nondistended, normoactive bowel sounds present, Soft to palpation and non-tender PALPATION: Yes Soft to palpation Extremity: COMMON NORMALS: no joint enlargement and no pedal edema OTHER: Right hip postoperative dressing. No bleeding or bruising. No thigh swelling. Right lower extremity appears perfused. Neuro: COMMON NORMALS: patient oriented x3 and moves all extremities SENSORIUM/ORIENTATION: Yes alert Skin: COMMON NORMALS: no rashes or lesions noted GENERAL SKIN EXAM: no rashes or lesions noted Data 04/21/25 11:00 04/21/25 11:50 A&P Assessment and plan 1. Status post right hip replacement: She is doing well postoperatively. Blood pressure is soft, 98/60. Will hold any pressors for now. Continue postoperative management. Reviewed vitals, CBC, BMP, hip x-ray, orthopedic note, discussed with orthopedic surgeon. VTE prophylaxis tubeRestart tomorrowI willTo be started tomorrow with Eliquis. Pending reassessment blood counts. Elective right CLAUDIA today reported as uneventful with estimated blood loss 200 mL. Early post-operative course focused on mobilization, pulmonary hygiene, and prevention of venous thromboembolism; tentative plan for discharge home contingent on recovery. - Initiate incentive spirometer to promote lung expansion and prevent pneumonia - Physical therapy assessment for mobilization - Anticipated to begin apixaban (Eliquis) tomorrow for venous thromboembolism prophylaxis, contingent on blood counts - Post-discharge planning with tentative plan to return home - Request incentive spirometer. 2. Hypertension: Soft blood pressure post-operatively : Post-operative blood pressure noted at 98/60 mmHg with history of sensitivity to antihypertensive medications and prior symptomatic hypotension. - Hold blood pressure medications for now due to soft blood pressure - Resume home antihypertensive medications depending on blood pressure trend Hypertension : Chronic hypertension managed at home with hydrochlorothiazide and nebivolol; usual home BPs in the 120s/80s. Post-operatively currently soft blood pressure. - Hold home hydrochlorothiazide and nebivolol for now because of soft blood pressure - Resume depending on blood pressure trend when appropriate Plan: Inflammatory arthritis : Patient describes arthritis as a ?crossover?; on hydroxychloroquine chronically. No current steroid use. - Resume hydroxychloroquine - Continue NSAID Risk of post-operative anemia : Estimated intraoperative blood loss 200 mL with anticipation of mild post-operative anemia. - Reassess blood counts - Monitor for bleeding Resume Linzess, tolterodine PDMP PDMP Reviewed: Not Reviewed Consult Attestations Medical Necessity Statement: Continue postop management after right CLAUDIA. and High MDM includes amount and/or complexity of data reviewed/ordered [ previous or external records, resulted lab(s)/test(s), ordered lab(s)/test(s) and other healthcare professional discussion] and described risk of complication, morbidity or mortality of management as documented Diagnoses Status post right hip replacement Z96.641 Hypertension I10
[2025-04-21] MEDS: oxyCODONE 5 mg IR Tab/Cap PO (18:13)
[2025-04-22] VITALS (7 sets, daily range): BP systolic 91–103; BP diastolic 57–67; PULSE 77–91; RESP 16–18; TEMP 36.3–36.7; O2SAT 91–97
[2025-04-22] MEDS: acetaminophen 1,000 MG/100 ML PIGGYBACK 400 MG IV ×2 (04:14→11:30)
[2025-04-22] MEDS: calcium carb-vit d 600mg/400unit 1 Tablet 1 EACH PO (04:18)
[2025-04-22] MEDS: sennosides-docusate Tablet 2 TAB PO (04:18)
[2025-04-22] MEDS: multivitamin therapeutic Tablet 1 TAB PO (04:18)
[2025-04-22] MEDS: chlorhexidine gluconate 0.12% Btl 473 mL 30 ML MUCOUS MEM ×2 (04:19→11:29)
[2025-04-22] MEDS: mupirocin oint 22 gm 1 APPLIC NASAL (04:19)
[2025-04-22] MEDS: ceFAZolin 2,000 MG in sodium chloride 0.9% (plus) 50 ML 100 MG IV (05:26)
[2025-04-22 07:08] LABS: Hematocrit 32.1 % (36-47); Hemoglobin 10.30 g/dL (11.27-16.99); Mean Corpuscular HGB Conc 32.1 g/dL (30-55); Mean Corpuscular Hemoglobin 30.7 pg (27-33); Mean Corpuscular Volume 95.8 fl (85-98); Nucleated Red Blood Cells % 0 %; Platelet Count 191 10^3/cmm (157-399); Red Blood Count 3.35 10^6/uL (3.85-5.65); White Blood Count 10.86 10^3/uL (3.29-11.43)
[2025-04-22 07:22] LABS: Anion Gap 11.7 (5-19); Blood Urea Nitrogen 20 mg/dL (8-23); Calcium 8.5 mg/dL (8.5-10.5); Carbon Dioxide 26 mmol/L (22-29); Chloride 104 mmol/L (98-107); Glucose 124 mg/dL (65-115); Osmolality Calculated 288 mOsm/kg (285-295); Potassium 4.7 mmol/L (3.5-5.1); Sodium 137 mmol/L (136-145)
[2025-04-22] MEDS: APIXABAN 2.5 MG TABLET PO (08:17)
--- NOTE | 2025-04-22 08:40 | PC.NURSE ---
López catheter d/c by RENATO Cali at 7:00am.
--- NOTE | 2025-04-22 11:55 | P.PN_ITS ---
Subjective 2 Subjective: She reports pain is under control. She is not short of breath. Denies chest pain or pressure. She had left calf pain upon waking up this morning and while walking to the bathroom which has been improving. Vitals/I&O/Wt Last Vital Signs Temp 97.7 F 04/22/25 11:25 Pulse 91 04/22/25 11:25 Resp 18 04/22/25 11:25 BP 100/67 04/22/25 11:25 Pulse Ox 93 04/22/25 11:25 O2 Del Method Room Air 04/22/25 11:25 O2 Flow Rate 2 04/22/25 04:00 04/21/25 04/22/25 04/22/25 22:59 06:59 14:59 Intake Total 1750 / 3000 1108.333 / 4108.333 1166.667 / 1166.667 Output Total 400 / 400 350 / 750 Balance 1350 / 2600 758.333 / 3358.333 1166.667 / 1166.667 Weight last 48 hrs Weight 96.644 kg Weight 89.358 kg Weight 89.358 kg Physical Exam 2 Const: COMMON NORMALS: patient oriented x3 and alert GENERAL APPEARANCE: c ooperative ORIENTATION/CONSCIOUSNESS: Yes awake HENMT: COMMON NORMALS: oropharynx normal Neck/C-Spine: COMMON NORMALS: no JVD Resp: COMMON NORMALS: normal respiratory effort and clear to auscultation bilaterally AUSCULTATION: clear to auscultation bilaterally Cardio: COMMON NORMALS: no JVD, regular rhythm, S1 normal heart sound present, S2 normal heart sound present and No murmurs present (Cardio) RHYTHM: regular rhythm HEART SOUNDS: S1 normal heart sound present and S2 normal heart sound present GI: COMMON NORMALS: Normal to inspection, nondistended, normoactive bowel sounds present, Soft to palpation and non-tender PALPATION: Yes Soft to palpation Extremity: COMMON NORMALS: no joint enlargement and no pedal edema OTHER: Right hip postoperative dressing. No bleeding or bruising. No thigh swelling. Right lower extremity appears perfused. Neuro: COMMON NORMALS: patient oriented x3 and moves all extremities S ENSORIUM/ORIENTATION: Yes alert Skin: COMMON NORMALS: no rashes or lesions noted GENERAL SKIN EXAM: no rashes or lesions noted Urinary Catheter Management: López: Cath Placed During This Visit: yes, but has since been removed by the nurse Reason for Continuing Indwelling Catheter: Decision to DC Catheter Urinary Catheter Date of Insertion: 04/21/25 Date Urinary Catheter Removed: 04/22/25 Time Urinary Catheter Discontinued: 07:00 Data 04/22/25 06:42 04/22/25 06:42 A&P Assessment and plan 1. Status post right hip replacement: Encourage I-S. PT assessment. Noted postoperative anemia, hemoglobin 10.3. Discussed with her. Pending orthopedic reassessment. Pressures remaining soft, 100/67. Would hold off on resuming blood pressure medications. - Post-discharge planning with tentative plan to return home, okay from hospitalist perspective - Request incentive spirometer. 2. Hypertension: Hold off resuming antihypertensives. Continue to monitor blood pressures at home. Resume if blood pressure is rising. Instructions provided. Reviewed vitals, chemistry. Hypertension : Chronic hypertension managed at home with hydrochlorothiazide and nebivolol; usual home BPs in the 120s/80s. Post-operatively currently soft blood pressure. - Hold home hydrochlorothiazide and nebivolol for now because of soft blood pressure - Resume depending on blood pressure trend when appropriate Plan: Inflammatory arthritis : Patient describes arthritis as a ?crossover?; on hydroxychloroquine chronically. No current steroid use. - Resume hydroxychloroquine - Continue NSAID Risk of post-operative anemia : Estimated intraoperative blood loss 200 mL with anticipation of mild post-operative anemia. - Reassess blood counts - Monitor for bleeding Resume Linzess, tolterodine Left calf pain: Upon waking up this morning was having some sharp pain in the left calf which so far has improved. Has not any more swelling. No bruising. She states she did not really feel like a cramp. Discussed consideration of duplex ultrasound to assess for any DVT, she declines at current time. PDMP PDMP Reviewed: Not Reviewed Attestations 2 Medical Necessity Statement*: Postoperative care after right CLAUDIA with anticipated return home. Diagnoses Status post right hip replacement Z96.641 Hypertension I10
--- NOTE | 2025-04-22 13:45 | P.DS_ITS ---
Discharge Providers Date of Admission: 04/21/25 15:47 Date of Discharge: April 22, 2025 Attending Provider at Admission: Landon Ramos DO Attending Provider at Discharge: Landon Ramos DO Consults: Dr. Rosas?hospitalist Primary Care Provider: REBECCA Vasquez Diagnoses at Discharge Discharge Diagnosis 1. Status post right hip replacement: 2. Hypertension: Reason for Visit Reason for Visit: M16.11 Brief History: Status post right total hip arthroplasty?Americo robotic assisted posterior approach Hospital Course Hospital Course Patient was brought to the hospital through the preoperative holding area with plan for [right] total hip arthroplasty for [right] hip dengerative joint disease. Once cleared by anesthesia for surgery subsequently was taken back to the operative suite underwent anesthesia per the anesthesia department and then underwent [right] total hip arthroplasty with Americo robotic assistance posterior approach without any complications. Patient was then subsequently taken back to PACU in stable condition recovering well. Once recovered, patient was then subsequently admitted to the floor postoperatively. Internal medicine was cons ulted for medical management assistance. Patient weightbearing as tolerated to the right lower extremity, posterior hip precautions. PT/OT. Pain control. DVT prophylaxis. Postoperative antibiotics and TXA. dressing was change as needed. Internal medicine was on board and appreciate their medical management and assistance. Pt was determined on postoperative day [1 ] the patient was stable for discharge from orthopedic as well as internal medicine standpoint. Patient's labs were monitored daily. Patient will receive appropriate pain medication as well as DVT prophylaxis postoperatively. Appropriate discharge instructions as well. Patient was then discharged in stable condition. Patient will discharge home. Pt will follow-up with Orthopedics in the office in 2 weeks. Patient understands and agrees with current plan. All questions answered. Understands there is any issues or concerns and contact the office. Physical Exam Narrative: Right hip examination: Dressings on in place, clean dry and intact. No evidence of saturation. Patient has normal postoperative swelling and tenderness to palpation to the hip. Compartments are soft compressible,'s calf soft and nontender. Sensations intact to light touch distally. Distal pulses are palpable. Patient is able to wiggle toes as well as plantarflex and dorsiflex ankle. Urinary Catheter Management: López: Cath Placed During This Visit: yes, but has since been removed by the nurse Reason for Continuing Indwelling Catheter: Decision to DC Catheter Urinary Catheter Date of Insertion: 04/21/25 Date Urinary Catheter Removed: 04/22/25 Time Urinary Catheter Discontinued: 07:00 Discharge Data Studies Completed and Pending Completed Studies During Hospitalization Category Date Time Status XR hip RT 2-3V wo/w pel* [id number] Routine Exams 04/21/25 15:55 Completed Pending at discharge Category Date Time Status Basic Metabolic Panel AM LABS Lab 04/23/25 04:00 Ordered Basic Metabolic Panel AM LABS Lab 04/24/25 04:00 Ordered Complete Blood Count w/Auto AM LABS Lab 04/23/25 04:00 Ordered Complete Blood Count w/Auto AM LABS Lab 04/24/25 04:00 Ordered Radiology Impressions Hip/Pelvis X-Ray 04/21/25 15:55 IMPRESSION: Postop changes status post right total hip arthroplasty with intact hardware. Laboratory Results WBC 10.86 10^3/uL (3.29-11.43) 04/22/25 06:42 RBC 3.35 10^6/uL (3.85-5.65) L 04/22/25 06:42 Hgb 10.30 g/dL (11.27-16.99) L 04/22/25 06:42 Hct 32.1 % (36-47) L 04/22/25 06:42 MCV 95.8 fl (85-98) 04/22/25 06:42 MCH 30.7 pg (27-33) 04/22/25 06:42 MCHC 32.1 g/dL (30-55) 04/22/25 06:42 RDW 13.6 % (12.1-15.1) 04/22/25 06:42 Plt Count 191 10^3/cmm (157-399) 04/22/25 06:42 MPV 9.8 fL (7.4-10.4) 04/22/25 06:42 Neut % (Auto) 82.4 % 04/22/25 06:42 Lymph % (Auto) 9.0 % 04/22/25 06:42 Bureau % (Auto) 7.9 % 04/22/25 06:42 Eos % (Auto) 0.1 % 04/22/25 06:42 Baso % (Auto) 0.3 % 04/22/25 06:42 Neut # (Auto) 8.95 10^3/uL (1.8-7.7) H 04/22/25 06:42 Lymph # (Auto) 1.0 10^3/uL (0.8-4.8) 04/22/25 06:42 Bureau # (Auto) 0.9 10^3/uL (0.2-0.9) 04/22/25 06:42 Eos # (Auto) 0.0 10^3/uL (0.0-0.8) 04/22/25 06:42 Baso # (Auto) 0.0 10^3/uL (0.0-0.1) 04/22/25 06:42 Nucleated RBC % (auto) 0 % 04/22/25 06:42 Nucleated RBCs # 0.0 /100WBC 04/22/25 06:42 Sodium 137 mmol/L (136-145) 04/22/25 06:42 Potassium 4.7 mmol/L (3.5-5.1) 04/22/25 06:42 Chloride 104 mmol/L (98-107) 04/22/25 06:42 Carbon Dioxide 26 mmol/L (22-29) 04/22/25 06:42 Anion Gap 11.7 (5-19) 04/22/25 06:42 BUN 20 mg/dL (8-23) 04/22/25 06:42 Creatinine 0.9 mg/dL (0.5-0.9) 04/22/25 06:42 GFR Calculation 62.5 mL/min (90-130) L 04/22/25 06:42 Glucose 124 mg/dL (65-115) H 04/22/25 06:42 Calculated Osmolality 288 mOsm/kg (285-295) 04/22/25 06:42 Calcium 8.5 mg/dL (8.5-10.5) 04/22/25 06:42 Blood Type O Positive 04/21/25 11:50 Rho(D) Type Rh positive 04/21/25 11:50 Antibody Screen Negative 04/21/25 11:50 Vitals Last Vital Signs Temp 97.7 F 04/22/25 11:25 Pulse 91 04/22/25 11:25 Resp 18 04/22/25 11:25 BP 100/67 04/22/25 11:25 Pulse Ox 93 04/22/25 11:25 O2 Del Method Room Air 04/22/25 11:25 O2 Flow Rate 2 04/22/25 04:00 Discharge Plan Discharge Patient Disposition: Home Health Service Condition: Stable Prescriptions: New Eliquis 2.5 mg tablet 2.5 mg PO BID 35 Days Qty: 70 0RF cefadroxil 500 mg capsule 500 mg PO BID 7 Days Qty: 14 0RF cyclobenzaprine 10 mg tablet 10 mg PO TID PRN (Reason: muscle spasm) 7 Days Qty: 21 0RF oxycodone 5 mg tablet 5 mg PO Q6H PRN (Reason: pain postop) 7 Days Qty: 28 0RF calcium carbonate-vitamin D3 [Calcium 600 + D(3)] 600 mg-10 mcg (400 unit) tablet 1 tab PO DAILY 30 Days Qty: 30 0RF Continued hydroxychloroquine 200 mg tablet 200 mg PO BID tolterodine 2 mg capsule,extended release 24hr 2 mg PO BID hydrochlorothiazide 12.5 mg capsule 12.5 mg PO DAILY nebivolol 5 mg tablet 5 mg PO DAILY aspirin 81 mg tablet,chewable 81 mg PO DAILY melatonin 10 mg tablet 20 mg PO DAILY potassium chloride 10 mEq capsule, extended release 10 meq PO DAILY Linzess 72 mcg capsule 72 mcg PO DAILY gabapentin 300 mg capsule 300 mg PO BID Qty: 14 0RF Held naproxen 500 mg tablet 500 mg PO BID Hold Instructions: Resume on 05/06/25. Discontinued hydrocodone-acetaminophen 5-325 mg tablet 1 tab PO BID PRN (Reason: Pain) [employer] OK for DC: Orthopedics and Hospitalist Discharge Order = DC NOW: Discharge Order (Routine); Ordered 04/22/25 Ordered By: Landon Ramos Referrals: [facility] [Outside] Landon Ramos DO [Physician, Orthopedics] - 05/06/25 1:35 pm Discharge Diet: Regular Discharge Activity: Limit activity as instructed and Use walker/crutches as instructed Patient Instructions: Cefadroxil (By mouth), Oxycodone/Acetaminophen (By mouth), Cyclobenzaprine (By mouth), Ondansetron (By mouth) (Zofran, Zofran ODT, Zuplenz), Apixaban (By mouth) (Eliquis), Acute Wound Care (DC), Total Hip Replacement (DC), Opioid Safety, Post Anesthesia Care, Patient Portal & Isai Instructions Activity Restrictions/Additional Instructions: Orthopedic discharge instructions: Right lower hip dressing---Emile Dressing--Keep dressing on and dry. After 3 days you can remove some of the dressing and shower. disconnect battery pack when showering. Emile dressing will stay on until follow up appt in 2 weeks. The battery pack for the dressing will at 5-7 days. Battery pack can be removed and discarded once batteries . Right upper hip dressing--Keep incisions clean dry and intact, leave Silverlon bandage dressings on in place for 7 days after that may rinse incisions with warm soapy water pat dry and redress with a dry dressing Patient should keep dressings clean dry and intact Okay to shower over dressings if they do become wet these should be removed and new dressings applied Weight-bear as tolerated to operative lower extremity Posterior hip precautions as instructed by physical therapy--avoid hip flexion past 90 degrees, adduction, avoid internal rotation When sleeping or lying in bed in supine position use abduction pillow to prevent legs from crossing midline Ice as needed for pain and swelling Take pain medication as prescribed Take antibiotic as prescribed for infection prevention Take muscle relaxer as needed for muscle spasms and pain Take antinausea medication as needed May supplement for pain with Tylenol [id number] as needed(1000 mg every 8 hours-do not exceed more than 3000mg in 24-hour period) Supplement with Citracal vitamin D for bone health and healing Pain medication can cause constipation. take [id number] stool softeners and or MiraLAX. Okay to resume aspirin Take blood thinner as prescribed (Eliquis), hold on NSAIDs as you are already taking a blood thinner. Follow-up in the orthopedic office in 2 weeks Contact the office for any questions or concerns Follow up with your primary provider for reassessment of anemia. In case of bleeding or swelling of the R thigh, or lightheadedness seek medical attention. Hold your blood pressure medications, HCTZ, Nebivolol. If blood pressure rising above 110 systolic, resume half dose Nebivolol first. Continue to monitor blood pressures. Consider resuming usual blood pressure medications if blood pressures steadily rising and reaching 150/90 or above. Avoid hypotension, hold blood pressure medications if blood pressures less than 110/60. Seek medical attention in case of any worsening or new concerning symptoms. Discharge Attestations Time Spent in Discharge Care*: less than 30 min Quality Metrics Clinical Quality Measures [ No reported AMI, CVA or VTE this stay] Coding Level of Care Code Acute Code for Chg Fwd Diagnoses Status post right hip replacement Z96.641 Hypertension I10
== END 2025-04-22 14:31 | disposition home health service (06) ==
LOC: MEDSURG 15:47
PROVIDERS: Physician Assistant; Admitting Provider Student in an Organized Health Care Education/Training Program; PCP Nurse Practitioner; Visit Provider Student in an Organized Health Care Education/Training Program
PROC: 8E0Y0CZ Robotic Assisted Procedure of Lower Extremity, Open Approach (ICD-10-PCS; CPT 27130; principal; 2025-04-21 12:15)
DX: M16.11 Unilateral primary osteoarthritis, right hip (principal); I10 Essential (primary) hypertension; Z79.82 Long term (current) use of aspirin; Z79.891 Long term (current) use of opiate analgesic; F17.200 Nicotine dependence, unspecified, uncomplicated
CPT/HCPCS: 27130; 20985; 36415; 73502; 80048; 85025; 86850; 86900; 97161; 97166; 97530; C1713; C1776; G0378; J0131; J0690; J1100; J1171; J1885; J2250; J2405; J2704; J3010; J3373; J3490; J7030; J7120; J9999

== ENCOUNTER → 2025-05-06 13:49 | Outpatient (BNVA) | payer MEDICARE, SELFPAY | PROVIDERS: PCP Nurse Practitioner; Visit Provider Physician Assistant | DX: Z98.890 Other specified postprocedural states (principal); Z96.641 Presence of right artificial hip joint | CPT/HCPCS: 73502; 99024 ==